=== PATIENT | male | born 1995 | race African-American/Black ===

== ENCOUNTER 2019-02-11 11:05 | Emergency (ER) | payer SELFPAY ==
[~2019-02-11] VITALS: Ht 167.6 cm; Wt 80.0 kg
[2019-02-11] MEDS ORDERED: KETOROLAC 60MG/2ML VIAL IM ONE (11:30)
[2019-02-11] MEDS ORDERED: DEXAMETHASONE 10 MG/ML VIAL IM ONE (11:30)
[2019-02-11] MEDS ORDERED: CLINDAMYCIN HCL 150MG CAPSULE PO ONE (11:45)
[2019-02-11 12:15] VITALS: BP 130/83
== END 2019-02-11 12:17 | disposition home or self-care (01) ==
LOC: ER 11:44
DX: J03.90 Acute tonsillitis, unspecified (principal)
CPT/HCPCS: 96372; 99283; J1100; J1885